=== PATIENT | male | born 1965 | race Hispanic/Latino ===

== ENCOUNTER 2019-03-05 20:43 | Emergency (ER) | payer OTHER ==
[~2019-03-05] VITALS: Ht 165.1 cm; Wt 84.1 kg
[2019-03-05] MEDS ORDERED: methylPREDNISolone INJ 125 MG/2 ML VIAL (J2930) IM ONE (22:30)
[2019-03-05] MEDS ORDERED: KETOROLAC 60 MG/2 ML VIAL (J1885) IM ONE (22:30)
[2019-03-05] MEDS ORDERED: IBUP80TA PO (23:24)
[2019-03-05 23:37] VITALS: BP 172/98
--- NOTE | 2019-03-06 06:48 | REP ---
Left shoulder three views: The acromioclavicular glenohumeral articulations are unremarkable. There is no fracture or dislocation. There are no calcifications or foreign bodies. There is a bone cyst in the humeral head adjacent to the humeral tuberosities. 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 Otherwise, negative left shoulder. Right shoulder three views: There is acromioclavicular osteoarthritis. The glenohumeral articulation is unremarkable. Mineralization is normal. There is no fracture or dislocation. There are no calcifications or foreign bodies. There is questionably a bone cyst in the humeral head adjacent to the humeral tuberosities. Impression: Questionable humeral head. Bone cyst. Acromioclavicular osteoarthritis. Otherwise, negative right shoulder. Electronically Signed by Harinder Page MD 03/06/2019 06:39 A
== END 2019-03-05 23:42 | disposition home or self-care (01) ==
LOC: M ED 20:43
DX: S46.911A Strain of unspecified muscle, fascia and tendon at shoulder and upper arm level, right arm, initial encounter (principal); S46.912A Strain of unspecified muscle, fascia and tendon at shoulder and upper arm level, left arm, initial encounter; X50.0XXA Overexertion from strenuous movement or load, initial encounter; Y92.139 Unspecified place military base as the place of occurrence of the external cause; Y99.1 Military activity
CPT/HCPCS: 73030; 96372; 99283; J1885; J2930